=== PATIENT | male | born 1985 | race Hispanic/Latino ===

== ENCOUNTER 2017-01-16 21:53 | Observation (INO) | payer OTHER ==
[2017-01-16 22:00] VITALS: RESP 18
[2017-01-16] MEDS ORDERED: Sodium Chloride 0.9% 1,000 ML IV STA (22:15)
--- NOTE | 2017-01-16 22:28 | ED PDOC ---
HPI: Psych/Substance Abuse Time Seen by Provider: 01/16/17 22:03 Chief Complaint (Nursing): Alcohol Ingestion History Per: Patient, EMS (states that he was found at a friend's house unconscious and hardly breathing. States his initial SpO2 was in the 30's but went up to the 90's. rad tech, local PD PO, gave him narcan without effect. This was followed by EMS giving him a 2nd dose and patient is now wake but still groggy.) Past Medical History Reviewed: Historical Data, Nursing Documentation, Vital Signs Vital Signs: Last Vital Signs Temp 96.9 F L 01/16/17 21:57 Pulse 105 H 01/16/17 21:57 Resp 18 01/16/17 21:57 BP 153/95 H 01/16/17 21:57 Pulse Ox 99 01/16/17 21:57 - Medical History Other PMH: fatty liver - Surgical History Surgical History: No Surg Hx, Tonsillectomy - Family History Family History: States: No Known Family Hx - Living Arrangements Living Arrangements: With Friends/Others - Social History Current smoker - smoking cessation education provided: No Alcohol: > 2 Drinks/Day Drugs: Denies - Allergies Allergies/Adverse Reactions: Allergies Allergy/AdvReac Type Severity Reaction Status Date / Time No Known Allergies Allergy Verified 01/16/17 21:57 Review of Systems ROS Statement: Except As Marked, All Systems Reviewed And Found Negative Constitutional: Negative for: Fever, Chills Cardiovascular: Negative for: Chest Pain Respiratory: Negative for: Cough Physical Exam - Reviewed Nursing Documentation Reviewed: Yes Vital Signs Reviewed: Yes - Physical Exam Appears: Positive for: Well, Non-toxic, No Acute Distress Head Exam: Positive for: ATRAUMATIC, NORMAL INSPECTION, NORMOCEPHALIC Skin: Positive for: Normal Color, Warm, DRY Eye Exam: Positive for: Normal appearance, EOMI, PERRL (about 4 mm and reactive (after Narcan)) ENT: Positive for: Normal ENT Inspection Neck: Positive for: Normal, Painless ROM Cardiovascular/Chest: Positive for: Regular Rate, Rhythm Respiratory: Positive for: CNT, Normal Breath Sounds Gastrointestinal/Abdominal: Positive for: Normal Exam, Bowel Sounds, Soft Back: Positive for: Normal Inspection Extremity: Positive for: Normal ROM Neurologic/Psych: Positive for: Alert, Oriented - Laboratory Results Result Diagrams: 01/16/17 22:26 01/16/17 22:26 - ECG O2 Sat by Pulse Oximetry: 99 Disposition - Clinical Impression Clinical Impression: Polysubstance abuse - Patient ED Disposition Is Patient to be Admitted: Transfer of Care Doctor Will See Patient In The: ED - Disposition Disposition: Transfer of Care Disposition Time: 23:55 Condition: IMPROVED Patient Signed Over To: Lisandro Potter Present On Arrival: None
[2017-01-16 22:33] LABS: BASO # 0.1 K/uL (0.0-0.2); BASO % 0.4 % (0.0-2.0); EOS # 0.1 K/uL (0.0-0.7); EOS % 0.7 % (0.0-4.0); HEMATOCRIT 44.7 % (35.0-51.0); LYMPH # 1.7 K/uL (1.0-4.3); LYMPH % 10.9 % (20.0-40.0); MEAN CELL VOLUME 95.2 fl (80.0-94.0); MEAN CORPUSCULAR HEMOGLOBIN 32.6 pg (27.0-31.0); MEAN CORPUSCULAR HGB CONC 34.2 g/dL (33.0-37.0); MEAN PLATELET VOLUME 9.8 fl (7.2-11.7); MONO # 0.7 K/uL (0.0-0.8); MONO % 4.1 % (0.0-10.0); NEUT # 13.4 K/uL (1.8-7.0); NEUT % 83.9 % (50.0-75.0); RED CELL DISTRIBUTION WIDTH 12.5 % (11.5-14.5); WHITE BLOOD COUNT 15.9 K/uL (4.8-10.8)
[2017-01-16 22:48] LABS: ALB/GLOB RATIO 1.6 (1.0-2.1); ALCOHOL SERUM 117 mg/dl (0-10); ALKALINE PHOSPHATASE 81 U/L (38-126); ALT/SGPT 131 U/L (21-72); AST/SGOT 85 U/L (17-59); BILIRUBIN,TOTAL 0.6 mg/dl (0.2-1.3); BLOOD UREA NITROGEN 13 mg/dl (9-20); CALCIUM 8.7 mg/dL (8.4-10.2); CARBON DIOXIDE 22 mmol/L (22-30); CHLORIDE 104 mmol/L (98-107); GFR AFRICAN-AMERICAN > 60; GLUCOSE,RANDOM 204 mg/dL (75-110); POTASSIUM 4.2 MMOL/L (3.6-5.0); SODIUM 140 mmol/l (132-148); TOTAL PROTEIN 7.6 G/DL (6.3-8.2)
--- NOTE | 2017-01-17 00:06 | ED PDOC ---
- Laboratory Results Result Diagrams: 01/16/17 22:26 01/16/17 22:26 - ECG O2 Sat by Pulse Oximetry: 99 (RA) Pulse Ox Interpretation: Normal Medical Decision Making Medical Decision Making: Time: 2351 Initial plan: --Patient signed out to me by Dr. Cosme. Pending sobriety. --ED-Observation for substance abuse. [id number]: Coingestion and Polysubstance Abuse counseling: The patient was counseled as to the multiple risks to his/her health from continued use of polysubstance abuse and Coingestion. He states he understands these risks, and also understands the options and resources available to him to help him stop using polysubstances. Therapy, local hotlines, and local resources were discussed as viable options for helping him stop his substance abuse. Discharge Instructions: Re-evaluation. Patient feels better. Discussed results and plan with patient who expresses understanding. Counseling was provided regarding the diagnosis and prognosis. All questions answered and there is agreement with the plan to discharge home with instructions. Patient stable for discharge. Return if symptoms persist or worsen. Scribe Attestation: Documented by Sandra Carson, acting as a scribe for Lisandro Potter MD. Scribe Attestation: All medical record entries made by the Scribe were at my direction and personally dictated by me. I have reviewed the chart and agree that the record accurately reflects my personal performance of the history, physical exam, medical decision making, and the department course for this patient. I have also personally directed, reviewed, and agree with the discharge instructions and disposition. Disposition - Clinical Impression Clinical Impression: Polysubstance abuse - POA Present On Arrival: None - Disposition Disposition: Routine/Home Disposition Time: 04:00 Condition: IMPROVED ED OBSERVATION Date of observation admission: 01/16/17 Time of observation admission: 23:52 - Observation admission statement Patient is being placed in observation because:: Substance Abuse - Goals of Observation Goals of observation are:: Pending Sobriety - Progress Note Progress Note: 01/17/17 01:22 Pending Sobriety 01/17/17 02:52 Pending Sobriety
[2017-01-17] MEDS ORDERED: Sodium Chloride 0.9% 1,000 ML IV STA (01:12)
[2017-01-17 03:20] VITALS: BP 145/88; PULSE 79; TEMP 97.6
[2017-01-17 03:58] VITALS: O2SAT 99
--- NOTE | 2017-01-17 10:20 | CARD ---
APPROVED REPORT EKG Measurement Heart [id number] <Conclusion> Normal sinus rhythm Normal ECG
== END 2017-01-17 04:00 | disposition home or self-care (01) ==
LOC: H.ER 21:53 → H.EROBSV 23:52
PROVIDERS: ADMIT Emergency Medicine; ATTEND Emergency Medicine
DX: F19.10 Other psychoactive substance abuse, uncomplicated (principal); K76.0 Fatty (change of) liver, not elsewhere classified